=== PATIENT | female | born 1960 ===

== ENCOUNTER 2024-03-23 18:20 | Inpatient (IN) | payer BC, MEDICAID ==
[~2024-03-23] VITALS: Ht 152.4 cm; Wt 72.4 kg
[2024-03-23] MEDS: diphenhydrAMINE 25mg capsule PO ONE (19:46)
[2024-03-23] MEDS: ondansetron/PF 4mg/2ml inj IV ONE (19:47)
[2024-03-23] MEDS: morphine 4 MG/ML inj SYRINge IV ONE (19:47)
[2024-03-23] MEDS: HYDROcodone/acetaminophen 10/325mg tab PO ONE (19:47)
[2024-03-23 20:01] LABS: BASOPHILS % (AUTO) 0.3 % (0-1); EOSINOPHILS % (AUTO) 0.3 % (0-6); HEMATOCRIT 42.4 % (35.0-45.0); HEMOGLOBIN 13.8 g/dl (12.0-16.0); LYMPHOCYTES % (AUTO) 8.3 % (21-51); MEAN CORPUSCULAR HEMOGLOBIN 30.4 PG (27.0-31.0); MEAN CORPUSCULAR HGB CONC 32.5 g/dL (33.0-36.5); MEAN CORPUSCULAR VOLUME 93.6 FL (78-98); MEAN PLATELET VOLUME 8.2 FL (7.4-10.4); MONOCYTES # (AUTO) 0.6 X10'3 (0-0.9); MONOCYTES % (AUTO) 5.2 % (2-12); NEUTROPHILS # (AUTO) 10.2 X10'3 (1.8-7.7); NEUTROPHILS % (AUTO) 85.9 % (42-75); PLATELET COUNT 234 X10'3 (140-440); RED BLOOD COUNT 4.53 X10'6 (4.20-5.60); RED CELL DISTRIBUTION WIDTH 13.4 % (11.5-14.5); WHITE BLOOD COUNT 11.8 X10'3 (4.5-11.0)
[2024-03-23 20:16] LABS: ALANINE AMINOTRANSFERASE 32 U/L (12-78); ALBUMIN 4.2 G/DL (3.4-5.0); ALBUMIN/GLOBULIN RATIO 1.2 (1.1-1.5); ALKALINE PHOSPHATASE 127 IU/L (46-116); ANION GAP 8 (8-16); ASPARTATE AMINO TRANSFERASE 16 U/L (10-37); BILIRUBIN,TOTAL 0.5 MG/DL (0.1-1.0); BLOOD UREA NITROGEN 25 MG/DL (7-18); BUN/CREATININE RATIO 30.5 (10.0-20.0); CALCIUM 9.3 MG/DL (8.5-10.1); CHLORIDE 107 MMOL/L (99-107); CREATININE 0.82 MG/DL (0.40-0.90); GLUCOSE 114 MG/DL (70-104); POTASSIUM 3.9 MMOL/L (3.5-5.1); SODIUM 143 MMOL/L (135-145); TOTAL CARBON DIOXIDE 28.2 MMOL/L (24-32); TOTAL PROTEIN 7.6 G/DL (6.4-8.2); eCRCL 50 ML/MIN; eGFR 70 ML/MIN
[2024-03-23] MEDS ORDERED: magnesium 4gm in 100ml NS 100 ML IV PRN (20:20)
[2024-03-23] MEDS ORDERED: HYDROcodone/acetaminophen 5mg/325mg tablet PO PRN (20:20)
[2024-03-23] MEDS ORDERED: magnesium Cl slow-release 64mg tablet PO PRN (20:20)
[2024-03-23] MEDS ORDERED: potassium Cl 20 mEq SR tablet PO PRN ×2 (20:20)
[2024-03-23] MEDS ORDERED: potassium Cl 40MEQ/1/2NS 520ml 520 ML IV PRN (20:20)
[2024-03-23] MEDS ORDERED: mag hydrox/Alum hydrox/simeth 30ml oral suspension PO PRN (20:20)
[2024-03-23] MEDS ORDERED: magnesium 2GM in 50ml NS 50 ML IV PRN (20:20)
[2024-03-23] MEDS ORDERED: HYDROmorphone/PF 0.2 MG/ML SYRINGE IV PRN (20:20)
[2024-03-23] MEDS: HYDROmorphone 1 mg/ml syringe IM ONE (20:28)
[2024-03-23] MEDS: ringers solution, lacted 1,000 ML IV ONE (20:47)
[2024-03-23] MEDS: TETanus/Pertussis (Acell)/Diphther VAC/PF (Tdap-Adult) 0.5ml syringe IMVAC ONE (20:52)
[2024-03-23 21:12] LABS: HEMOGLOBIN A1C 5.6 % (4.5-6.2)
[2024-03-23] MEDS: LIDOcaine 1% W/epiNEPHrine 1:100,000 20ml vial SQ ONE (21:25)
[2024-03-23] MEDS: HYDROmorphone inj. 0.5 MG/0.5 ML DISP.SYRIN IV PRN (22:38)
[2024-03-23] MEDS: ceFAZolin/D5W- 1GM premix 50 ML IV SCH (23:06)
[2024-03-23 23:41] VITALS: RESP 22; O2SAT 100
[2024-03-24] VITALS (8 sets, daily range): BP systolic 129–175; BP diastolic 67–92; PULSE 67–85; RESP 16–22; TEMP 97.3–97.9; O2SAT 96–100
[2024-03-24] MEDS ORDERED: ceFAZolin/D5W- 1GM premix 50 ML IV SCH
[2024-03-24] MEDS ORDERED: NO HOME MEDS (02:37)
[2024-03-24 06:59] LABS: BASOPHILS % (AUTO) 0.2 % (0-1); EOSINOPHILS # (AUTO) 0.1 X10'3 (0-0.9); EOSINOPHILS % (AUTO) 0.7 % (0-6); HEMATOCRIT 42.5 % (35.0-45.0); HEMOGLOBIN 13.8 g/dl (12.0-16.0); LYMPHOCYTES # (AUTO) 1.3 X10'3 (1.1-4.8); LYMPHOCYTES % (AUTO) 17.3 % (21-51); MEAN CORPUSCULAR HEMOGLOBIN 30.7 PG (27.0-31.0); MEAN CORPUSCULAR HGB CONC 32.5 g/dL (33.0-36.5); MEAN CORPUSCULAR VOLUME 94.4 FL (78-98); MEAN PLATELET VOLUME 8.4 FL (7.4-10.4); MONOCYTES # (AUTO) 0.8 X10'3 (0-0.9); MONOCYTES % (AUTO) 10.5 % (2-12); NEUTROPHILS # (AUTO) 5.6 X10'3 (1.8-7.7); NEUTROPHILS % (AUTO) 71.3 % (42-75); PLATELET COUNT 193 X10'3 (140-440); RED BLOOD COUNT 4.51 X10'6 (4.20-5.60); RED CELL DISTRIBUTION WIDTH 13.5 % (11.5-14.5); WHITE BLOOD COUNT 7.8 X10'3 (4.5-11.0)
[2024-03-24 07:18] LABS: ALBUMIN 3.7 G/DL (3.4-5.0); ANION GAP 10 (8-16); BLOOD UREA NITROGEN 18 MG/DL (7-18); CALCIUM 9.1 MG/DL (8.5-10.1); CHLORIDE 106 MMOL/L (99-107); GLUCOSE 115 MG/DL (70-104); POTASSIUM 4.4 MMOL/L (3.5-5.1); SODIUM 142 MMOL/L (135-145); TOTAL CARBON DIOXIDE 25.6 MMOL/L (24-32); eCRCL 68 ML/MIN; eGFR > 90 ML/MIN
[2024-03-24] MEDS: K and/or MAG REPLACEMENT MC SCH (07:38)
[2024-03-24] MEDS: ondansetron/PF 4mg/2ml inj IV PRN (07:42)
[2024-03-24] MEDS: heparin, porcine 5000 units/ml vial SQ SCH (08:00)
[2024-03-24] MEDS: ampicillin/sulbac 3gm/NS 100ml 100 ML IV SCH (09:49)
[2024-03-24] MEDS: proCHLORperazine 10 MG/2 ml inj IV PRN (12:14)
[2024-03-25] VITALS (28 sets, daily range): BP systolic 102–168; BP diastolic 48–77; PULSE 58–90; RESP 15–21; TEMP 97.4–98.4; O2SAT 95–99
[2024-03-25 07:09] LABS: BASOPHILS % (AUTO) 0.3 % (0-1); EOSINOPHILS # (AUTO) 0.1 X10'3 (0-0.9); EOSINOPHILS % (AUTO) 1.2 % (0-6); HEMATOCRIT 41.9 % (35.0-45.0); HEMOGLOBIN 13.8 g/dl (12.0-16.0); LYMPHOCYTES # (AUTO) 1.2 X10'3 (1.1-4.8); LYMPHOCYTES % (AUTO) 17.5 % (21-51); MEAN CORPUSCULAR HEMOGLOBIN 30.5 PG (27.0-31.0); MEAN CORPUSCULAR HGB CONC 33.1 g/dL (33.0-36.5); MEAN CORPUSCULAR VOLUME 92.4 FL (78-98); MEAN PLATELET VOLUME 8.5 FL (7.4-10.4); MONOCYTES # (AUTO) 0.7 X10'3 (0-0.9); MONOCYTES % (AUTO) 9.2 % (2-12); NEUTROPHILS # (AUTO) 5.1 X10'3 (1.8-7.7); NEUTROPHILS % (AUTO) 71.8 % (42-75); PLATELET COUNT 202 X10'3 (140-440); RED BLOOD COUNT 4.53 X10'6 (4.20-5.60); RED CELL DISTRIBUTION WIDTH 13.2 % (11.5-14.5); WHITE BLOOD COUNT 7.1 X10'3 (4.5-11.0)
[2024-03-25 07:28] LABS: ALBUMIN 3.5 G/DL (3.4-5.0); ANION GAP 10 (8-16); BLOOD UREA NITROGEN 17 MG/DL (7-18); BUN/CREATININE RATIO 26.2 (10.0-20.0); CHLORIDE 105 MMOL/L (99-107); CREATININE 0.65 MG/DL (0.40-0.90); GLUCOSE 104 MG/DL (70-104); POTASSIUM 3.8 MMOL/L (3.5-5.1); SODIUM 140 MMOL/L (135-145); TOTAL CARBON DIOXIDE 25.5 MMOL/L (24-32); eCRCL 63 ML/MIN; eGFR > 90 ML/MIN
[2024-03-25] MEDS: BUPIVAcaine 2.5mg/ml inj 50ml vial (contains preservative) ONE (11:30)
[2024-03-25] MEDS ORDERED: labetalol 20mg/4ml (5mg/ml) syringe IV PRN (11:55)
[2024-03-25] MEDS ORDERED: morphine 4 MG/ML inj SYRINge IV PRN (11:55)
[2024-03-25] MEDS: acetaminophen 1,000mg/100ml IV 100 ML IV ONE (11:55)
[2024-03-25] MEDS ORDERED: ondansetron/PF 4mg/2ml inj IV PRN (11:55)
[2024-03-25] MEDS ORDERED: proCHLORperazine 10 MG/2 ml inj IV PRN (11:55)
[2024-03-25] MEDS ORDERED: morphine 2 MG/ML inj. syringe IV PRN (11:55)
[2024-03-25] MEDS ORDERED: hydrALAZINE 20mg/ml inj. IV PRN (11:55)
[2024-03-25] MEDS: ringers solution, lacted 1,000 ML IV SCH (11:55)
[2024-03-25] MEDS ORDERED: meperidine/PF 25mg/ml syringe IV PRN ×3 (11:55)
[2024-03-25] MEDS: cloNIDine hcl/PF 100mcg/ml inj ONE (12:29)
[2024-03-25] MEDS ORDERED: fentaNYL/PF 50MCG/1 ML 2ML syringe ONE (12:31)
[2024-03-25] MEDS ORDERED: midazolam 1 mg/ML 2ml injection ONE (12:31)
[2024-03-25] MEDS ORDERED: sevoflurane 250ml liquid IH ONE (12:41)
[2024-03-25] MEDS ORDERED: dexamethasone sod phosphate 4mg/ml inj. ONE ×2 (13:11→13:12)
[2024-03-25] MEDS ORDERED: LIDOcaine 2% (20mg/ml) 5ml vial ONE (13:11)
[2024-03-25] MEDS ORDERED: propofol inj 20 ML IV ONE (13:11)
[2024-03-25] MEDS ORDERED: ceFAZolin 1000mg inj ONE ×2 (13:11)
[2024-03-25] MEDS ORDERED: ROPIVAcaine 0.5% (5mg/ml) 30ml vial ONE (13:11)
[2024-03-25] MEDS ORDERED: ondansetron/PF 4mg/2ml inj ONE (13:12)
[2024-03-25] MEDS: vancomycin 1,000mg inj ONE (13:31)
[2024-03-25] MEDS: vancomycin 1,000mg inj IVT ONE (13:32)
[2024-03-26] VITALS (7 sets, daily range): BP systolic 96–136; BP diastolic 48–70; PULSE 66–78; RESP 16–18; TEMP 97.8–98.8; O2SAT 92–98
[2024-03-26] MEDS: acetaminophen 325mg tablet PO PRN (02:03)
[2024-03-26 06:59] LABS: BASOPHILS % (AUTO) 0.1 % (0-1); EOSINOPHILS % (AUTO) 0.1 % (0-6); HEMATOCRIT 41.6 % (35.0-45.0); HEMOGLOBIN 13.6 g/dl (12.0-16.0); LYMPHOCYTES # (AUTO) 1.2 X10'3 (1.1-4.8); LYMPHOCYTES % (AUTO) 10.8 % (21-51); MEAN CORPUSCULAR HEMOGLOBIN 30.5 PG (27.0-31.0); MEAN CORPUSCULAR HGB CONC 32.6 g/dL (33.0-36.5); MEAN CORPUSCULAR VOLUME 93.5 FL (78-98); MEAN PLATELET VOLUME 8.6 FL (7.4-10.4); MONOCYTES # (AUTO) 0.8 X10'3 (0-0.9); MONOCYTES % (AUTO) 7.4 % (2-12); NEUTROPHILS % (AUTO) 81.6 % (42-75); PLATELET COUNT 214 X10'3 (140-440); RED BLOOD COUNT 4.45 X10'6 (4.20-5.60); RED CELL DISTRIBUTION WIDTH 13.3 % (11.5-14.5); WHITE BLOOD COUNT 11.1 X10'3 (4.5-11.0)
[2024-03-26 07:15] LABS: ALBUMIN 3.3 G/DL (3.4-5.0); ANION GAP 10 (8-16); BLOOD UREA NITROGEN 22 MG/DL (7-18); BUN/CREATININE RATIO 31.4 (10.0-20.0); CALCIUM 8.9 MG/DL (8.5-10.1); CHLORIDE 106 MMOL/L (99-107); GLUCOSE 120 MG/DL (70-104); POTASSIUM 4.1 MMOL/L (3.5-5.1); SODIUM 142 MMOL/L (135-145); TOTAL CARBON DIOXIDE 25.8 MMOL/L (24-32); eCRCL 58 ML/MIN; eGFR 84 ML/MIN
[2024-03-26] MEDS: HYDROcodone/acetaminophen 10/325mg tab PO PRN (14:14)
[2024-03-26] MEDS ORDERED: oxyCODONE/APAP 5-325mg tablet PO PRN (15:35)
[2024-03-26] MEDS ORDERED: HYDROmorphone inj. 0.5 MG/0.5 ML DISP.SYRIN IV PRN (15:35)
[2024-03-26] MEDS: oxyCODONE/APAP 10/325mg tablet PO PRN (16:03)
[2024-03-26] MEDS: HYDROmorphone 1 mg/ml syringe IV PRN (18:03)
[2024-03-26] MEDS: ketorolac trometh. 30mg/ml inj. IV ONE (18:45)
[2024-03-27] VITALS (8 sets, daily range): BP systolic 116–169; BP diastolic 56–69; PULSE 51–67; RESP 14–20; TEMP 96.6–99.9; O2SAT 94–98
[2024-03-27] MEDS: magnesium hydroxide 30ml (MOM) UD suspension PO PRN (02:27)
[2024-03-27 06:50] LABS: BASOPHILS % (AUTO) 0.5 % (0-1); EOSINOPHILS # (AUTO) 0.1 X10'3 (0-0.9); EOSINOPHILS % (AUTO) 2.2 % (0-6); HEMATOCRIT 38.3 % (35.0-45.0); HEMOGLOBIN 12.7 g/dl (12.0-16.0); LYMPHOCYTES # (AUTO) 1.5 X10'3 (1.1-4.8); LYMPHOCYTES % (AUTO) 31.7 % (21-51); MEAN CORPUSCULAR HEMOGLOBIN 31.1 PG (27.0-31.0); MEAN CORPUSCULAR HGB CONC 33.3 g/dL (33.0-36.5); MEAN CORPUSCULAR VOLUME 93.6 FL (78-98); MEAN PLATELET VOLUME 8.9 FL (7.4-10.4); MONOCYTES # (AUTO) 0.7 X10'3 (0-0.9); MONOCYTES % (AUTO) 14.2 % (2-12); NEUTROPHILS # (AUTO) 2.5 X10'3 (1.8-7.7); NEUTROPHILS % (AUTO) 51.4 % (42-75); PLATELET COUNT 171 X10'3 (140-440); RED BLOOD COUNT 4.09 X10'6 (4.20-5.60); RED CELL DISTRIBUTION WIDTH 13.6 % (11.5-14.5); WHITE BLOOD COUNT 4.8 X10'3 (4.5-11.0)
[2024-03-27 07:06] LABS: ALBUMIN 3.1 G/DL (3.4-5.0); ANION GAP 5 (8-16); BLOOD UREA NITROGEN 26 MG/DL (7-18); BUN/CREATININE RATIO 35.1 (10.0-20.0); CALCIUM 8.8 MG/DL (8.5-10.1); CHLORIDE 109 MMOL/L (99-107); CREATININE 0.74 MG/DL (0.40-0.90); GLUCOSE 92 MG/DL (70-104); POTASSIUM 3.8 MMOL/L (3.5-5.1); SODIUM 144 MMOL/L (135-145); TOTAL CARBON DIOXIDE 29.6 MMOL/L (24-32); eCRCL 55 ML/MIN; eGFR 79 ML/MIN
[2024-03-27] MEDS: lactulose 20gm/30ml cup PO SCH (14:12)
[2024-03-28 05:55] LABS: BASOPHILS % (AUTO) 0.6 % (0-1); EOSINOPHILS # (AUTO) 0.1 X10'3 (0-0.9); EOSINOPHILS % (AUTO) 1.7 % (0-6); HEMATOCRIT 37.8 % (35.0-45.0); HEMOGLOBIN 12.5 g/dl (12.0-16.0); LYMPHOCYTES # (AUTO) 1.2 X10'3 (1.1-4.8); LYMPHOCYTES % (AUTO) 23.8 % (21-51); MEAN CORPUSCULAR HEMOGLOBIN 30.9 PG (27.0-31.0); MEAN CORPUSCULAR HGB CONC 33.1 g/dL (33.0-36.5); MEAN CORPUSCULAR VOLUME 93.4 FL (78-98); MEAN PLATELET VOLUME 8.8 FL (7.4-10.4); MONOCYTES # (AUTO) 0.5 X10'3 (0-0.9); MONOCYTES % (AUTO) 9.9 % (2-12); NEUTROPHILS # (AUTO) 3.3 X10'3 (1.8-7.7); PLATELET COUNT 185 X10'3 (140-440); RED BLOOD COUNT 4.05 X10'6 (4.20-5.60); RED CELL DISTRIBUTION WIDTH 13.5 % (11.5-14.5); WHITE BLOOD COUNT 5.1 X10'3 (4.5-11.0)
[2024-03-28 06:00] VITALS: BP 150/75; PULSE 65; RESP 15; TEMP 98.7; O2SAT 96
[2024-03-28 06:09] LABS: ANION GAP 9 (8-16); BLOOD UREA NITROGEN 14 MG/DL (7-18); BUN/CREATININE RATIO 24.6 (10.0-20.0); CALCIUM 8.6 MG/DL (8.5-10.1); CHLORIDE 105 MMOL/L (99-107); CREATININE 0.57 MG/DL (0.40-0.90); GLUCOSE 97 MG/DL (70-104); POTASSIUM 3.8 MMOL/L (3.5-5.1); SODIUM 140 MMOL/L (135-145); eCRCL 72 ML/MIN; eGFR > 90 ML/MIN
[2024-03-28 10:00] VITALS: BP 155/75; PULSE 64; RESP 16; TEMP 98.4; O2SAT 93
[2024-03-28] MEDS ORDERED: OXYC1TAB17 PO (15:23)
[2024-03-28] MEDS ORDERED: AMOX-580 PO (15:23)
[2024-03-28] MEDS ORDERED: PROC10TA97 PO (15:23)
[2024-03-28 18:00] VITALS: BP 137/57; PULSE 66; RESP 18; TEMP 97.9; O2SAT 97
[2024-03-28] MEDS: lactose-reduced food (Ensure Enlive) - 237ml bottle PO SCH (18:00)
[2024-03-28 20:00] VITALS: RESP 18; O2SAT 97
[2024-03-28 22:00] VITALS: BP 119/62; PULSE 61; RESP 14; TEMP 97.8; O2SAT 96
[2024-03-29 05:47] VITALS: O2SAT 97
[2024-03-29 06:00] VITALS: BP 133/65; PULSE 55; RESP 16; TEMP 96.7; O2SAT 95
[2024-03-29 08:27] VITALS: RESP 16
[2024-03-29 10:00] VITALS: BP 138/48; PULSE 56; RESP 18; TEMP 97; O2SAT 95
[2024-03-29] MEDS: amox tr/potassium clavulanate 875/125mg TAB PO ONE (14:41)
[2024-03-29 16:18] VITALS: RESP 16
== END 2024-03-29 16:10 | disposition home or self-care (01) | DRG 512 ==
LOC: ER 18:21 → ORTHO 4S 20:14 → UNDOADMIN 20:14 → ORTHO 4S 03-24 02:23 → SUR 3N 03-27 17:05
PROVIDERS: ADMIT Internal Medicine Critical Care Medicine; ATTEND Family Medicine
PROC: 0PBK0ZZ Excision of Right Ulna, Open Approach (ICD-10-PCS; 2024-03-25)
PROC: 0PSK04Z Reposition Right Ulna with Internal Fixation Device, Open Approach (ICD-10-PCS; principal; 2024-03-25 12:41)
DX: S52.691B Other fracture of lower end of right ulna, initial encounter for open fracture type I or II (principal); E86.0 Dehydration; W54.0XXA Bitten by dog, initial encounter; Z88.5 Allergy status to narcotic agent; Z87.891 Personal history of nicotine dependence; Y93.89 Activity, other specified; Y92.89 Other specified places as the place of occurrence of the external cause; Y99.8 Other external cause status
CPT/HCPCS: 36415; 73090; 73100; 73130; 76000; 80048; 80053; 82948; 83036; 85025; 87081; 90471; 90715; 93005; 96372; 96374; 96375; 97110; 97116; 97161; 97530; 97535; 99291; A4615; A4618; A6222; A6258; A6449; A7000; C1713; G0378; J0295; J0690; J0735; J0780; J1100; J1170; J1644; J1885; J2250; J2270; J2405; J2704; J2795; J3010; J3370; J3490; J7030; J7040; J7120